=== PATIENT | female | born 1945 | race Caucasian/White ===

== ENCOUNTER 2023-02-14 11:34 | Emergency (ER) | payer MEDICARE, OTHER ==
[2023-02-14 12:07] VITALS: BP 188/77; PULSE 84
[2023-02-14] MEDS ORDERED: Ondansetron 4 MG Tab.DIS PO ONE (12:55)
== END 2023-02-14 13:17 | disposition home or self-care (01) ==
LOC: JD.ED 11:34
DX: H81.10 Benign paroxysmal vertigo, unspecified ear (principal); E78.00 Pure hypercholesterolemia, unspecified; I10 Essential (primary) hypertension; Z79.82 Long term (current) use of aspirin; Z79.899 Other long term (current) drug therapy; Z86.16 Personal history of COVID-19
CPT/HCPCS: 99283; A9270

== ENCOUNTER 2024-02-29 22:09 | Emergency (ER) | payer MEDICARE, BC ==
[2024-02-29] MEDS ORDERED: Sodium Chloride 0.9% 10 ML Syringe FLUSH PRN (22:31)
[2024-02-29 22:39] LABS: BASOPHILS PERCENT AUTO 0.6 % (0.0-1.0); EOSINOPHILS ABSOLUTE AUTO 0.1 K/mm3 (0.0-0.4); EOSINOPHILS PERCENT AUTO 0.9 % (0.0-6.0); HEMATOCRIT 40.7 % (37.0-47.0); HEMOGLOBIN 14.4 gm/dl (12.0-16.0); IMMATURE GRAN ABSOLUTE AUTO 0.01 K/mm3 (0.00-0.05); IMMATURE GRAN PERCENT AUTO 0.1 % (0.0-0.4); LYMPHOCYTES ABSOLUTE AUTO 1.1 K/mm3 (1.0-4.8); LYMPHOCYTES PERCENT AUTO 15.8 % (24.0-44.0); MEAN CORPUSCULAR HEMOGLOBIN 30.6 pg (28.0-32.0); MEAN CORPUSCULAR HGB CONC 35.4 g/dl (32.0-36.0); MEAN CORPUSCULAR VOLUME 86.4 fl (83.0-99.0); MEAN PLATELET VOLUME 8.9 fl (9.4-12.3); MONOCYTES ABSOLUTE AUTO 0.5 K/mm3 (0.0-0.8); MONOCYTES PERCENT AUTO 7.2 % (0.0-8.0); NEUTROPHILS ABSOLUTE AUTO 5.1 K/mm3 (1.8-7.7); NEUTROPHILS PERCENT AUTO 75.4 % (41.0-71.0); PLATELET COUNT,PLT 259 K/mm3 (150-400); RED BLOOD CELL COUNT 4.71 M/mm3 (4.10-5.30); WHITE BLOOD CELL COUNT,WBC 6.76 K/mm3 (3.9-11.3)
[2024-02-29] MEDS: Ondansetron 4 MG/2 ML SDV IVPUSH ONE (22:51)
[2024-02-29] MEDS: Pantoprazole 40 MG Vial IVPUSH ONE (22:51)
[2024-02-29] MEDS: Sodium Chloride 0.9% 1,000 ML IV STA (22:51)
[2024-02-29] MEDS: HYDROmorphone 0.5 MG/0.5 ML Syringe IVPUSH ONE (22:51)
[2024-02-29 23:01] LABS: A/G RATIO 1.2 (1-2); ALBUMIN 4.1 g/dl (3.4-5.0); ANION GAP 16.7 (5-15); BILIRUBIN TOTAL 1.7 mg/dL (0.2-1.0); CALCIUM 9.3 mg/dL (8.5-10.1); EST CRCL DRUG DOSING (CG) 40.04 mL/min; POTASSIUM,K 3.7 mEq/L (3.5-5.1); PROTEIN TOTAL,TP 7.6 g/dl (6.4-8.2)
[2024-02-29] MEDS: Iopamidol 612 MG/ML 100 ML Bottle IVPUSH ONE (23:38)
[2024-02-29 23:47] LABS: APPEARANCE,URINE CLEAR (Clear); BILIRUBIN,URINE NEGATIVE (Negative); COLOR,URINE YELLOW (Yellow); GLUCOSE,URINE NEGATIVE (Negative); KETONES,URINE 2+ (Negative); LEUKOCYTE ESTERASE,URINE TRACE (Negative); NITRITE,URINE NEGATIVE (Negative); OCCULT BLOOD,URINE NEGATIVE (Negative); PROTEIN,URINE TRACE (Negative)
[2024-03-01] LABS: BACTERIA,URINE MODERATE /hpf (FEW); MUCUS,URINE FEW /hpf (FEW); RBC,URINE 0-5 /hpf (0-5); WBC,URINE 0-5 /hpf (0-5)
[2024-03-01 00:53] VITALS: BP 153/65; PULSE 85
== END 2024-03-01 01:00 ==
LOC: JD.ED 22:09
DX: K80.21 Calculus of gallbladder without cholecystitis with obstruction (principal); I10 Essential (primary) hypertension; E78.00 Pure hypercholesterolemia, unspecified; Z79.899 Other long term (current) drug therapy
CPT/HCPCS: 36415; 74177; 80053; 81001; 83690; 85025; 86140; 96361; 96374; 96375; 99285; C9113; J1170; J2405; J7030; Q9967; 99284